=== PATIENT | male | born 1955 | race Caucasian/White ===

== ENCOUNTER → 2024-04-20 08:32 | Outpatient (REF) | payer MEDICARE, OTHER, SELFPAY ==
[2024-04-20 11:30] LABS: % Basophils 0.8 % (0-2); % Eosinophils 3.9 % (0-6); % Immature Granulocytes 0.3 % (0-0.5); % Lymphocytes 24.1 % (20.5-51.1); % Neutrophils 58.9 % (42.2-75.2); Absolute Basophils 0.1 10^3/uL (0-0.2); Absolute Eosinophils 0.2 10^3/uL (0-0.7); Absolute Lymphocytes 1.5 10^3/uL (1.2-3.4); Absolute Monocytes 0.7 10^3/uL (0.1-0.6); Absolute Neutrophils 3.6 10^3/uL (1.4-6.5); Hematocrit 44.3 % (39.0-52.0); Hemoglobin 14.8 g/dL (13.0-18.0); Mean Corp Hgb Conc. 33.4 g/dL (33.0-37.0); Mean Corpuscular Volume 92.7 fL (80.0-94.0); Mean Platelet Volume 9.4 fL (7.4-10.4); Nucleated Red Blood Cells % 0 % (-); Platelet Count 187 10^3/uL (130-400); Red Blood Cell Count 4.78 10^6/uL (4.70-6.10); Red Cell Dist. Width 13.1 % (11.5-14.5); White Blood Cell Count 6.1 10^3/uL (4.8-10.8)
[2024-04-20 11:37] LABS: Urine Albumin Negative (Neg - Trace); Urine Bilirubin Negative (Negative); Urine Character Clear (Clear); Urine Color Straw; Urine Glucose Negative (Negative); Urine Ketone Negative (Negative); Urine Leukocyte Negative (Negative); Urine Nitrite Negative (Negative); Urine Occult Blood Negative (Negative); Urine Urobilinogen Negative (Neg - 1+); Urine pH 6.5 (5.0-9.0)
[2024-04-20 11:49] LABS: ALT (SGPT) 43 U/L (0-50); AST (SGOT) 35 U/L (17-59); Albumin 4.4 g/dl (3.5-5.0); Alkaline Phosphatase 75 U/L (38-126); Blood Urea Nitrogen 18 mg/dl (9-20); Calcium 9.8 mg/dl (8.4-10.2); Carbon Dioxide 28 mmol/L (22-30); Chloride 103 mmol/L (98-107); Glucose 109 mg/dl (70-99); HDL Cholesterol 49 mg/dl; LDL Cholesterol, Calculated 66 mg/dl; Magnesium 2.2 mg/dl (1.6-2.3); Potassium 4.8 mmol/L (3.5-5.1); Sodium 140 mmol/L (135-145); Total Bilirubin 0.7 mg/dl (0.2-1.3); Total Cholesterol 125 mg/dl (50-199); Total Protein 6.7 g/dl (6.3-8.2); Triglyceride 52 mg/dl (10-149); Very Low Density Lipoprotein 10 mg/dl (0-30); eGFR > 60.00
[2024-04-20 11:52] LABS: NT-proBNP 51.6 pg/ml
[2024-04-20 12:13] LABS: PSA, Total - Screen 4.45 ng/ml (0.0-4.0); TSH 1.89 uIU/ml (0.47-4.68)
== END ==
LOC: HWLAB 08:32
PROVIDERS: ATTENDING PHYSICIAN Internal Medicine
DX: I49.01 Ventricular fibrillation (principal); I25.10 Atherosclerotic heart disease of native coronary artery without angina pectoris; E78.00 Pure hypercholesterolemia, unspecified; I10 Essential (primary) hypertension; Z86.74 Personal history of sudden cardiac arrest; Z95.810 Presence of automatic (implantable) cardiac defibrillator; G47.33 Obstructive sleep apnea (adult) (pediatric); M16.0 Bilateral primary osteoarthritis of hip; N40.0 Benign prostatic hyperplasia without lower urinary tract symptoms; Z12.5 Encounter for screening for malignant neoplasm of prostate; Z00.00 Encounter for general adult medical examination without abnormal findings
CPT/HCPCS: 36415; 80053; 80061; 81003; 83735; 83880; 84443; 85025; G0103

== ENCOUNTER 2024-05-06 10:00 | Emergency (ER) | payer MEDICARE, OTHER, SELFPAY ==
[2024-05-06 10:01] VITALS: BP 133/71
--- NOTE | 2024-05-06 10:35 | ED.MUSCINJ ---
HPI-Injury
<Nancy Thomas RIGGING ENGINEER - Last Filed: 05/06/24 17:48>
General
Chief Complaint: Musculo-Skeletal Complaint
Source: patient and spouse
Exam Limitations: none
Time Seen by Provider: 05/06/24 10:25
Nursing documentation reviewed up to this point in time: agreed with
History of Present Illness-Injury
Initial Injury comments:
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 Now with pain, swelling, redness left Achilles area and lower half of calf after incident where he was walking on a
tile floor, the floor suddenly inclined and his right foot hit the incline hard, he felt a sudden discomfort in the Achilles area, continue to walk 2 miles to his car and since, has been resting it, icing it with increasing swelling and redness. He
states it is not very painful.
Past History
<Nancy Thomas, RIGGING ENGINEER - Last Filed: 05/06/24 17:48>
Past History
ED Past Medical History: CAD, ID and Other (Arrhythmia, cardiac arrest)
ED Past Surgical History: Cardiac (Pacer defibrillator, CABG)
Social History
Tobacco: Non-smoker
Alcohol: None
Drug: None
Personal:
Living: with family
Review of Systems
<Nancy Thomas, RIGGING ENGINEER - Last Filed: 05/06/24 17:48>
Review of Systems
Allergies reviewed?: Yes
All Other Systems: ROS reviewed and negative except as documented in HPI and ROS
Musculoskeletal: Reports other (swelling redness posterior lower R calf and Achilles area)
Phy Exam
<Nancy Thomas, RIGGING ENGINEER - Last Filed: 05/06/24 17:48>
Physical Exam
Physical Exam:
GENERAL: No acute distress. A&Ox3.
CONSTITUTIONAL: Afebrile.
RESPIRATORY: Regular respirations, nonlabored, lungs clear.
CARDIOVASCULAR: Regular rate and rhythm, no murmurs, no rubs.
GI: Soft, nontender
MUSCULOSKELETAL: R calf with mild erythema mid calf to heel. Mild warmth. Non tender calf, tender over distal Achilles area with spongy softness here. The rest of the Acilles has good tone and Freeman test is negative. Moves with ease. Well
perfused.
SKIN: Warm, dry, pink
PSYCH: Normal mood and affect. Well kept, interactive and appropriate
NEUROLOGIC: Awake, alert and oriented. No focal neurological deficits
Injury Course
<Nancy Thomas NP - Last Filed: 05/06/24 17:48>
Orders/Labs/Results
Orders:
Orders
05/06/24 11:15
US Periph Venous LOWER Ext LT Urgent
Comment:
Reason For Exam: pain, swelling, red, achilles injury
05/06/24 11:57
Ortho Boot Left- Treatment ONCE
Short or tall?: Tall
<Isaac Pop MD - Last Filed: 05/06/24 11:05>
Orders/Labs/Results
Orders:
Orders
05/06/24 11:15
US Periph Venous LOWER Ext LT Urgent
Comment:
Reason For Exam: pain, swelling, red, achilles injury
05/06/24 11:57
Ortho Boot Left- Treatment ONCE
Short or tall?: Tall
<Nancy Thomas NP - Last Filed: 05/06/24 17:48>
MDM/Problems Addressed
Differential Diagnosis Includes:
Achilles rupture, tear, cellulitis, DVT
MDM/Problems Addressed:
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 Now with pain, swelling, redness left Achilles area and lower half of calf after incident where he was walking on a
tile floor, the floor suddenly inclined and his right foot hit the incline hard, he felt a sudden discomfort in the Achilles area, continue to walk 2 miles to his car and since, has been resting it, icing it with increasing swelling and redness. He
states it is not very painful.
There is a small scab just medial upper calf just proximal to the reddened area
Ultrasound negative for DVT
Prescription for doxycycline sent to patient pharmacy
[facility] Ortho boot applied and patient ambulating well afterward
[place] texted Dr. Mahajan, orthopedics to be expecting a call from the patient tomorrow to get him in sooner rather than later. He replied 'Sounds good, will make it happen, thanks'
<Nancy Thomas RIGGING ENGINEER - Last Filed: 05/06/24 17:48>
*Critical Care Note
Total Time (30-74mins, 75-104mins- exclusive of procedures): Not Applicable
ED Attending Note
<Nancy Thomas RIGGING ENGINEER - Last Filed: 05/06/24 17:48>
-
Portions of this chart may have been created with voice recognition software.� Occasional wrong word or��sound alike� substitutions may have occurred due to the inherent limitations of voice recognition software.
<Isaac Pop MD - Last Filed: 05/06/24 11:05>
ED Attending Note
Patient seen and examined by attending physician: Yes
I performed the substantive portion of visit, reviewed & personally made and approve the management plan that is documented in note by myself or KRISS.: Yes
ED Attending Note:
69-year-old male with relatively sudden onset of posterior leg pain 2 days ago after catching his foot.
He also has a small scab noted at the area from picking. No chest pain shortness of breath fever chills or other complaints.
On exam patient is distal Achilles on the left. However he is able to plantarflex somewhat. There is a small scab noted on the mid tibia. There is mild erythema to the distal leg. Motor or sensory neurovascular intact.
Impression is significant Achilles tendon rupture. Probably not 100% but close. However the erythema extending proximately is more than I would expect just from an inflammatory change. Possibly from wearing his 's boot. Possibly secondary to
a local cellulitis from the scab. If the ultrasound is negative patient will be plated in a appropriate boot, we will cover with antibiotics and orthopedic follow-up.
Discharge Plan
Departure
Patient Disposition: Home (Routine Discharge)
Date of Disposition: 05/06/24
Time of Disposition: 11:57
Patient with high blood pressure during this ER visit?: No
Condition: Good
Discharge Problem:
Achilles tendon rupture, Cellulitis of left lower extremity
Instructions: Achilles Tendon Rupture, Cellulitis (Skin Infection), Adult ED
Prescriptions:
New
doxycycline hyclate 100 mg capsule
100 mg PO BID Qty: 14 0RF
No Action
atorvastatin 20 MG tablet
20 mg PO HS
clopidogrel 75 MG tablet
75 mg PO DAILY
aspirin 81 MG tablet,delayed release (DR/EC)
81 mg PO DAILY
metoprolol succinate [Toprol XL] 25 MG tablet extended release 24 hr
12.5 mg PO DAILY
Co Q-10
1 cap PO Q48H
Referrals:
Dionte Moore MD [Family Provider] -
Adria Mahajan MD [Active] - Next open appointment
Activity Restrictions/Additional Instructions:
As we discussed, ultrasound shows no clot.
Wear the orthopedic boot at all times when up and around until further instructed by the orthopedic doctor.
I sent a prescription to your pharmacy for doxycycline antibiotic as your leg redness, swelling is more than would be expected for an injured Achilles. Due to the fact that you have a small wound on the calf we will treat you for early cellulitis.
Interventions
Interventions:
*Risk Screen - Suicide Last Done: 05/06/24 12:27
*General Assessment Last Done: 05/06/24 12:27
*Neglect/Abuse Screening Last Done: 05/06/24 12:27
ED- Fall Risk Assessment Last Done: 05/06/24 12:27
*ED COVID-19 Vaccine History Last Done: 05/06/24 12:27
*Nursing Disposition Last Done: 05/06/24 12:27
ED-Musculoskeletal Assessment Last Done: 05/06/24 12:27
Discharge Date and Time
Discharge Date/Time: 05/06/24 12:28
Print Language: LAO
== END 2024-05-06 12:28 | disposition home or self-care (01) ==
LOC: EMR 10:00
PROVIDERS: EMERGENCY PHYSICIAN Emergency Medicine; FAMILY PHYSICIAN Internal Medicine
DX: S86.012A Strain of left Achilles tendon, initial encounter (principal); L03.116 Cellulitis of left lower limb; X50.1XXA Overexertion from prolonged static or awkward postures, initial encounter
CPT/HCPCS: 99284; 93971

== ENCOUNTER 2024-07-31 09:23 | Emergency (ER) | payer MEDICARE, OTHER, SELFPAY ==
[2024-07-31 09:25] VITALS: BP 146/80
--- NOTE | 2024-07-31 09:33 | ED.GENMED ---
History of Present Illness
General
Chief Complaint: DVT/Possible Blood Clot
Source: patient
Time Seen by Provider: 07/31/24 09:27
History of Present Illness
History of Present Illness:
69-year-old male noticed some increased swelling to the left lower leg. Has been going on for 2 to 3 days. Admits to significant increased activity. Had an Achilles rupture repair done in April. No fever or chills. No chest pain shortness
of breath. No distal numbness tingling or weakness. Just concerned about a blood clot
Past History
Past History
ED Past Medical History: CAD, [place] and Other (Arrhythmia, cardiac arrest)
ED Past Surgical History: Cardiac (Pacer defibrillator, CABG)
Social History
Tobacco: Non-smoker
Alcohol: None
Drug: None
Personal:
Living: with family
Review of Systems
Review of Systems
Constitutional: Denies fever or chills
Respiratory: Reports no symptoms
Cardiac: Reports no symptoms
Phy Exam
Physical Exam
Physical Exam:
GENERAL: Alert and oriented in no apparent distress
EYE: Orbits normal.
CARDIAC: Regular rate and rhythm
LUNGS: No distress
NEUROLOGICAL: Alert and oriented , grossly non-focal
SKIN: Warm and dry. Minimal erythematous hue to the left lower leg. However no warmth. No drainage. No open wounds.
MUSCULOSKELETAL: Moderate edema to the left lower leg. Minimal pitting. Does not color. No swelling above the knee. Knee is normal. Ankle normal.
PSYCH: Normal and appropriate interaction.
Course
Orders/Labs/Results
Orders:
Orders
07/31/24 09:27
Periph Venous Lwr Ext Left US [US Periph Venous LOWER Ext LT] Urgent
Comment:
Reason For Exam: calf swelling
Vital Signs
Initial and Last Documented VS:
Initial Vital Signs
Temp Pulse Resp BP Pulse Ox
98.0 F 74 18 146/80 96
07/31/24 09:25 07/31/24 09:25 07/31/24 09:25 07/31/24 09:25 07/31/24 09:25
Last Documented Vital Signs
Temp Pulse Resp BP Pulse Ox
98.0 F 54 18 137/74 96
07/31/24 09:25 07/31/24 12:16 07/31/24 12:16 07/31/24 12:16 07/31/24 09:25
MDM/Problems Addressed
Differential Diagnosis Includes:
Nothing clinically to support an infectious issue. Either swelling secondary to increased activity or DVT. Ultrasound pending.
*Radiology
Radiology exam reviewed: radiology read reviewed (No DVT)
*Pulse Oximetry
Patient hypoxic: no
*Critical Care Note
Total Time (30-74mins, 75-104mins- exclusive of procedures): Not Applicable
Update Note
Update Note:
No DVT. Clinically not infected. Elevate rest and follow-up
ED Attending Note
-
Portions of this chart may have been created with voice recognition software.� Occasional wrong word or��sound alike� substitutions may have occurred due to the inherent limitations of voice recognition software.
Discharge Plan
Departure
Patient Disposition: Home (Routine Discharge)
Date of Disposition: 07/31/24
Time of Disposition: 11:59
Patient with high blood pressure during this ER visit?: Yes
Discharge Problem:
Left leg swelling
Instructions: BLOOD PRESSURE
Prescriptions:
No Action
atorvastatin 20 MG tablet
20 mg PO HS
clopidogrel 75 MG tablet
75 mg PO DAILY
aspirin 81 MG tablet,delayed release (DR/EC)
81 mg PO DAILY
metoprolol succinate [Toprol XL] 25 MG tablet extended release 24 hr
12.5 mg PO DAILY
Co Q-10
1 cap PO Q48H
doxycycline hyclate 100 mg capsule
100 mg PO BID Qty: 14 0RF
Referrals:
Dionte Moore MD [Family Provider] - Follow up in 2-3 days
Activity Restrictions/Additional Instructions:
There is no sign of a blood clot. However if the symptoms persist get a repeat ultrasound done in a week.
Return sooner with increased swelling redness fever chest pain shortness of breath or any other concerning symptoms
Interventions
Interventions:
*Risk Screen - Suicide Last Done: 07/31/24 12:17
*General Assessment Last Done: 07/31/24 12:16
*Neglect/Abuse Screening Last Done: 07/31/24 12:16
*Nursing Disposition Last Done: 07/31/24 12:17
ED- Cardiac Assessment Last Done: 07/31/24 09:34
ED- Pulmonary Assessment Last Done: 07/31/24 09:34
ED-Peripheral Vascular Assessment Last Done: 07/31/24 09:34
ED-Skin Assessment Last Done: 07/31/24 09:34
Discharge Date and Time
Discharge Date/Time: 07/31/24 12:18
Print Language: VENEZUELAN
[2024-07-31 12:16] VITALS: BP 137/74
== END 2024-07-31 12:18 | disposition home or self-care (01) ==
LOC: EMR 09:23
PROVIDERS: EMERGENCY PHYSICIAN Emergency Medicine; FAMILY PHYSICIAN Internal Medicine
DX: R22.42 Localized swelling, mass and lump, left lower limb (principal); I25.10 Atherosclerotic heart disease of native coronary artery without angina pectoris; Z95.1 Presence of aortocoronary bypass graft; Z86.74 Personal history of sudden cardiac arrest
CPT/HCPCS: 99284; 93971

== ENCOUNTER → 2024-08-15 06:12 | Outpatient (REF) | payer MEDICARE, OTHER, SELFPAY ==
[2024-08-15 09:47] LABS: % Basophils 0.7 % (0-2); % Eosinophils 3.9 % (0-6); % Immature Granulocytes 0.3 % (0-0.5); % Monocytes 12.3 % (1.7-9.3); % Neutrophils 52.8 % (42.2-75.2); Absolute Eosinophils 0.2 10^3/uL (0-0.7); Absolute Lymphocytes 1.8 10^3/uL (1.2-3.4); Absolute Monocytes 0.7 10^3/uL (0.1-0.6); Absolute Neutrophils 3.1 10^3/uL (1.4-6.5); Hematocrit 46.6 % (39.0-52.0); Hemoglobin 15.1 g/dL (13.0-18.0); Mean Corp Hgb Conc. 32.4 g/dL (33.0-37.0); Mean Corpuscular Hgb 31.3 pg (27.0-31.0); Mean Corpuscular Volume 96.7 fL (80.0-94.0); Mean Platelet Volume 8.9 fL (7.4-10.4); Nucleated Red Blood Cells % 0 % (-); Platelet Count 185 10^3/uL (130-400); Red Blood Cell Count 4.82 10^6/uL (4.70-6.10); Red Cell Dist. Width 12.6 % (11.5-14.5); White Blood Cell Count 5.9 10^3/uL (4.8-10.8)
[2024-08-15 10:04] LABS: ALT (SGPT) 32 U/L (0-50); AST (SGOT) 30 U/L (17-59); Albumin 4.2 g/dl (3.5-5.0); Alkaline Phosphatase 76 U/L (38-126); Blood Urea Nitrogen 15 mg/dl (9-20); Calcium 9.3 mg/dl (8.4-10.2); Carbon Dioxide 31 mmol/L (22-30); Chloride 103 mmol/L (98-107); Glucose 103 mg/dl (70-99); HDL Cholesterol 43 mg/dl; LDL Cholesterol, Calculated 61 mg/dl; Magnesium 1.9 mg/dl (1.6-2.3); Potassium 4.3 mmol/L (3.5-5.1); Sodium 140 mmol/L (135-145); Total Bilirubin 0.8 mg/dl (0.2-1.3); Total Cholesterol 116 mg/dl (50-199); Total Protein 6.8 g/dl (6.3-8.2); Triglyceride 61 mg/dl (10-149); Very Low Density Lipoprotein 12 mg/dl (0-30); eGFR > 60.00
== END ==
LOC: HWLAB 06:12
PROVIDERS: ATTENDING PHYSICIAN Nurse Practitioner Acute Care; FAMILY PHYSICIAN Internal Medicine
DX: Z95.810 Presence of automatic (implantable) cardiac defibrillator (principal); Z95.1 Presence of aortocoronary bypass graft; E78.49 Other hyperlipidemia
CPT/HCPCS: 36415; 80053; 80061; 83735; 85025

== ENCOUNTER → 2025-01-30 06:46 | Outpatient (REF) | payer MEDICARE, OTHER, SELFPAY ==
[2025-02-01 03:48] LABS: PSA Total 5.1 ng/mL (0.0-4.0)
== END ==
LOC: HWLAB 06:46
PROVIDERS: ATTENDING PHYSICIAN Internal Medicine
DX: N40.0 Benign prostatic hyperplasia without lower urinary tract symptoms (principal); R97.20 Elevated prostate specific antigen [PSA]
CPT/HCPCS: 36415; 84153; 84154